=== PATIENT | male | born 1985 | race Caucasian/White ===

== ENCOUNTER → 2020-06-01 11:17 | Outpatient (BNVA) | payer SELFPAY | PROVIDERS: PCP Family Medicine; Visit Provider Family Medicine | DX: E78.5 Hyperlipidemia, unspecified (principal); I10 Essential (primary) hypertension; F41.8 Other specified anxiety disorders | CPT/HCPCS: 80053; 80061 ==

== ENCOUNTER → 2020-11-27 10:27 | Outpatient (BNVA) | payer SELFPAY | PROVIDERS: PCP Family Medicine; Visit Provider Family Medicine | DX: I10 Essential (primary) hypertension (principal); N52.9 Male erectile dysfunction, unspecified | CPT/HCPCS: 80053 ==

== ENCOUNTER → 2021-05-28 10:40 | Outpatient (BNVA) | payer SELFPAY | PROVIDERS: PCP Family Medicine; Visit Provider Family Medicine | DX: I10 Essential (primary) hypertension (principal); M77.01 Medial epicondylitis, right elbow; N52.9 Male erectile dysfunction, unspecified; F41.8 Other specified anxiety disorders | CPT/HCPCS: 80053; 80061; 82043; 85025 ==

== ENCOUNTER → 2022-08-05 09:37 | Outpatient (BNVA) | payer SELFPAY | PROVIDERS: PCP Family Medicine; Visit Provider Family Medicine | DX: I10 Essential (primary) hypertension (principal); M77.11 Lateral epicondylitis, right elbow; F41.8 Other specified anxiety disorders | CPT/HCPCS: 80053; 80061; 82043; 85025 ==

== ENCOUNTER 2023-01-12 17:24 | Emergency (ER) | payer SELFPAY ==
[2023-01-12 17:38] VITALS: BP 127/85; PULSE 117; RESP 16; O2SAT 98
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
[2023-01-12] MEDS: ondansetron 4 MG Tablet PO (19:57)
[2023-01-12] MEDS: HYDROcodone-acetaminophen 5-325 mg Tablet 1 TAB PO (19:57)
[2023-01-12] MEDS: amoxicillin-clav 875-125 mg Tablet 1 TAB PO (19:57)
[2023-01-12] MEDS: tetanus-dipt-pertussis 0.5 mL SDV IM (20:07)
--- NOTE | 2023-01-13 09:43 | DCPLANNER ---
Addendum entered by Yenny Agrawal 01/18/23 08:31: Patient had a follow up appointment scheduled with ENT - patient did attend appointment Addendum entered by Yenny Agrawal 01/16/23 08:08: Patient has a follow up appointment scheduled for Monday, January 16, [address]23 at 1:[address] Gudino at ENT. Clinic will call patient with appointment information. Original Note: national facilities manager had message to schedule a followup appointment for patient with ENT. national facilities manager sent patients information to the front office staff at ENT. Patients information will be printed and reviewed. Clinic will call patient with appointment information.
== END 2023-01-12 20:13 | disposition home or self-care (01) ==
PROVIDERS: Emergency Provider Nurse Practitioner Family; PCP Family Medicine
DX: S02.32XA Fracture of orbital floor, left side, initial encounter for closed fracture (principal); S93.401A Sprain of unspecified ligament of right ankle, initial encounter; I10 Essential (primary) hypertension; E78.5 Hyperlipidemia, unspecified; Y04.2XXA Assault by strike against or bumped into by another person, initial encounter; Z23 Encounter for immunization
CPT/HCPCS: 70486; 90471; 90715; 99284; Q0162

== ENCOUNTER → 2025-04-25 09:00 | Outpatient (BNVA) | payer SELFPAY | PROVIDERS: PCP Family Medicine; Visit Provider Family Medicine | DX: I10 Essential (primary) hypertension (principal); R53.83 Other fatigue | CPT/HCPCS: 80053; 80061; 84403; 84443; 85025 ==